=== PATIENT | male | born 1935 | race Caucasian/White ===

== ENCOUNTER 2019-01-17 13:09 | Day surgery (SDC) | payer MEDICARE ==
[~2019-01-17] VITALS: Ht 180.3 cm; Wt 143.9 kg
[~2019-01-17 13:09] MED LIST: ALBU90OI INH; AMLO10 PO; ASPI81CH PO; AZIT250 PO; Aldactone25 MG PO; Aspir 8181 MG PO; Bumetanide2 MG PO; CARV6.25 PO; CHOL10002 PO; COCONUT OIL1000 MG PO; Carvedilol12.5 MG PO; Cinnamon500 MG PO; ESOM20 PO; FURO40 PO; Ferrous Sulfat325 M2 PO; Flovent 110 MCG12 GM INH; GLIP10 PO; GLIP5ER PO; INSUL100I SC; LACT10SY PO; LINZESS290 MCG PO; LOSA50 PO; LOSARTAN POTAS100 MG PO; MAGOXI400 PO; METF500C PO; Metformin HCl1000 MG PO; POTCHL20ER PO; PRAV20 PO; PREG100 PO; SPACE CHAMBER1 EACH MC; SPIR50 PO; TOUJEO SOL300 UNIT/1 SC; TRAZ50 PO; Vitamin B-12100 MCG PO; Zyloprim100 MG PO
--- NOTE | 2019-01-17 19:04 | NUR ---
01/17/191903 Ute Morales (Gia DELAYED ENTRY PT ATE FULL BREAKFAST AT 1130. DR. RAMOS & DR. JARRETT NOTIFIED. DR. RAMOS OKAY TO PROCEDURE WITH SURGERY WITHOUT ANESTHESIA, USING ONLY LOCAL. PT STATES UNDERSTANDING & AGREES WITH PLAN. DR. JARRETT EXCUSED FROM CASE.
== END 2019-01-17 15:33 | disposition home or self-care (01) ==
LOC: ORSCSDS 13:09
PROVIDERS: Ophthalmology
PROC: 08BN0ZZ Excision of Right Upper Eyelid, Open Approach (ICD-10-PCS; principal; 2019-01-17 14:45)
PROC: 080NXZZ Alteration of Right Upper Eyelid, External Approach (ICD-10-PCS; principal; 2019-01-17 14:45)
PROC: 080PXZZ Alteration of Left Upper Eyelid, External Approach (ICD-10-PCS; principal; 2019-01-17 14:45)
PROC: 08BP0ZZ Excision of Left Upper Eyelid, Open Approach (ICD-10-PCS; principal; 2019-01-17 14:45)
DX: H02.831 Dermatochalasis of right upper eyelid (principal); H02.834 Dermatochalasis of left upper eyelid; H02.423 Myogenic ptosis of bilateral eyelids; E66.01 Morbid (severe) obesity due to excess calories; Z68.41 Body mass index [BMI] 40.0-44.9, adult; I12.9 Hypertensive chronic kidney disease with stage 1 through stage 4 chronic kidney disease, or unspecified chronic kidney disease; E11.59 Type 2 diabetes mellitus with other circulatory complications; E11.42 Type 2 diabetes mellitus with diabetic polyneuropathy; E11.22 Type 2 diabetes mellitus with diabetic chronic kidney disease; N18.3 Chronic kidney disease, stage 3 (moderate); E78.5 Hyperlipidemia, unspecified; Z79.84 Long term (current) use of oral hypoglycemic drugs; Z79.899 Other long term (current) drug therapy; Z79.82 Long term (current) use of aspirin
CPT/HCPCS: 82947; J0171; J7120

== ENCOUNTER 2023-04-07 08:06 | Emergency (ER) | payer MEDICARE ==
[~2023-04-07] VITALS: Ht 172.7 cm; Wt 142.9 kg
[2023-04-07 08:49] LABS: BASOPHILS ABSOLUTE AUTO 0.04 K/mm3 (0.00-0.23); BASOPHILS PERCENT AUTO 1 % (0-2); EOSINOPHILS PERCENT AUTO 3 % (0-6); Hematocrit 35.9 % (37.0-53.0); Hemoglobin 11.8 g/dL (13.5-17.5); IMMATURE GRAN ABSOLUTE AUTO 0.03 K/mm3 (0.00-0.10); IMMATURE GRAN PERCENT AUTO 0 % (0-1); LYMPHOCYTES ABSOLUTE AUTO 1.72 K/mm3 (0.84-5.20); LYMPHOCYTES PERCENT AUTO 22 % (21-46); MONOCYTES ABSOLUTE AUTO 0.53 K/mm3 (0.16-1.47); MONOCYTES PERCENT AUTO 7 % (4-13); Mean Corpuscular HGB 29.1 pg (26.0-34.0); Mean Corpuscular HGB Conc 32.9 g/dL (31.5-36.5); Mean Corpuscular Volume 89 fL (80-100); Mean Platelet Volume 9.8 fL (9.1-12.4); NEUTROPHILS ABSOLUTE AUTO 5.38 K/mm3 (1.96-9.15); NEUTROPHILS PERCENT AUTO 68 % (41-73); Platelet Count 250 K/mm3 (150-400); RDW Coefficient Variation 13.5 % (11.7-14.2); RDW Standard Deviation 44.3 fL (35.1-46.3); Red Blood Cell Count 4.05 M/mm3 (4.30-5.90)
[2023-04-07 09:29] LABS: Albumin, Blood 3.4 g/dL (3.4-5.0); Albumin/Globulin Ratio 0.9 (0.8-1.8); Bilirubin, Total 0.4 mg/dL (0.1-1.0); Bun/Creatinine Ratio 14.3 (12.0-20.0); Creatinine, Blood 1.75 mg/dL (0.60-1.20); Globulin, Blood 3.6 g/dL (2.2-4.0); Magnesium, Blood 2.1 mg/dL (1.6-2.4); Potassium, Blood 3.5 mmol/L (3.5-5.5)
[2023-04-07 10:05] LABS: Source, Urine Clean Catch
[2023-04-07 10:08] LABS: Appearance, Urine Clear (Clear); Bilirubin, Urine Neg (Neg); Blood, Urine 1+ (Neg); Color, Urine Yellow (P-Yellow); Glucose Qualitative, Urine Neg (Neg); Ketones, Urine Neg (Neg); Leukocyte Esterase, Urine Neg (Neg); Nitrite, Urine Neg (Neg); Protein, Urine 1+ (Neg); Urobilinogen, Urine NORM (Normal); pH, Urine 6.5 (5.0-8.0)
[2023-04-07 10:17] LABS: Bacteria Rare /hpf; Squamous Epithelial Cells Rare /hpf (Few)
[2023-04-07 15:06] VITALS: BP 161/87
== END 2023-04-07 15:19 | disposition home or self-care (01) ==
LOC: ER 08:06
PROVIDERS: Physician Assistant
DX: R53.1 Weakness (principal); E11.9 Type 2 diabetes mellitus without complications; I10 Essential (primary) hypertension; E78.5 Hyperlipidemia, unspecified; E66.9 Obesity, unspecified; Z68.42 Body mass index [BMI] 45.0-49.9, adult; Z79.4 Long term (current) use of insulin; Z79.82 Long term (current) use of aspirin; Z79.899 Other long term (current) drug therapy; Z79.84 Long term (current) use of oral hypoglycemic drugs
CPT/HCPCS: 80053; 81001; 83735; 85025; 93005; 93010; 96360; 99285-25; J7030

== ENCOUNTER → 2024-08-28 | Outpatient (CLI) | payer MEDICARE ==
[2024-08-28 15:23] LABS: Bun/Creatinine Ratio 13.2 (12.0-20.0); Calcium, Blood 9.5 mg/dL (8.5-10.1); Creatinine, Blood 1.67 mg/dL (0.60-1.20); Potassium, Blood 4.1 mmol/L (3.5-5.5)
== END | disposition home or self-care (01) ==
LOC: LAB SHORT 13:15 → LAB 13:15
PROVIDERS: Internal Medicine
DX: E11.9 Type 2 diabetes mellitus without complications (principal)
CPT/HCPCS: 80048

== ENCOUNTER 2025-01-05 08:07 | Observation (INO) | payer MEDICARE ==
[~2025-01-05] VITALS: Ht 188 cm; Wt 137.0 kg
[2025-01-05 08:34] LABS: Calcium, Ionized (POC) 1.24 mmol/L (1.10-1.46); Chloride (POC) 103 mmol/L (98-108); Creatinine (POC) 1.9 mg/dL (0.8-1.3); Glucose (ISTAT POC) 98 mg/dL (70-99); Hematocrit (POC) 34.0 % (41.0-53.0); Hemoglobin (POC) 11.6 g/dL (13.5-17.5); Potassium (POC) 3.5 mmol/L (3.5-5.5); Sodium (POC) 142 mmol/L (135-148); Total CO2 (POC) 25 mmol/L (21-32)
[2025-01-05 08:37] LABS: BASOPHILS ABSOLUTE AUTO 0.05 K/mm3 (0.00-0.23); BASOPHILS PERCENT AUTO 1 % (0-2); EOSINOPHILS ABSOLUTE AUTO 0.30 K/mm3 (0.00-0.68); EOSINOPHILS PERCENT AUTO 5 % (0-6); Hematocrit 34.3 % (37.0-53.0); Hemoglobin 11.2 g/dL (13.5-17.5); IMMATURE GRAN ABSOLUTE AUTO 0.01 K/mm3 (0.00-0.10); IMMATURE GRAN PERCENT AUTO 0 % (0-1); LYMPHOCYTES ABSOLUTE AUTO 2.01 K/mm3 (0.84-5.20); LYMPHOCYTES PERCENT AUTO 32 % (21-46); MONOCYTES ABSOLUTE AUTO 0.51 K/mm3 (0.16-1.47); MONOCYTES PERCENT AUTO 8 % (4-13); Mean Corpuscular HGB Conc 32.7 g/dL (31.5-36.5); Mean Corpuscular Volume 90 fL (80-100); NEUTROPHILS ABSOLUTE AUTO 3.41 K/mm3 (1.96-9.15); NEUTROPHILS PERCENT AUTO 54 % (41-73); NRBC ABSOLUTE 0.00 K/mm3 (0.00-0.02); NRBC Auto 0.0 /100 WBC (0.0-0.2); Platelet Count 259 K/mm3 (150-400); RDW Coefficient Variation 14.2 % (11.7-14.2); RDW Standard Deviation 46.0 fL (35.1-46.3)
[2025-01-05 09:03] LABS: Alanine Aminotransfer (ALT/SGP 19 U/L (12-78); Albumin, Blood 3.4 g/dL (3.4-5.0); Albumin/Globulin Ratio 1.0 (0.8-1.8); Anion Gap 11 mmol/L (3-11); Aspartate Aminotrans (AST/SGOT 16 U/L (12-37); Bilirubin, Total 0.5 mg/dL (0.1-1.0); Blood Urea Nitrogen 29 mg/dL (8-24); CO2, Blood 26 mmol/L (21-32); Calcium, Blood 9.5 mg/dL (8.5-10.1); Chloride, Blood 107 mmol/L (98-108); Creatinine, Blood 1.75 mg/dL (0.60-1.20); Globulin, Blood 3.3 g/dL (2.2-4.0); Glucose, Blood 99 mg/dL (70-99); Potassium, Blood 3.5 mmol/L (3.5-5.5); Sodium, Blood 140 mmol/L (136-145); Total Protein, Blood 6.7 g/dL (6.4-8.2)
[2025-01-05] MEDS ORDERED: Morphine Sulfate 4 MG/1 ML Injection IV ONE (09:35)
[2025-01-05] MEDS ORDERED: Ondansetron HCl 2 MG / ML 2ML Vial IV ONE (09:35)
[2025-01-05] MEDS ORDERED: Diazepam 5 MG / ML 2ML SYR IV PRN (10:50)
[2025-01-05] MEDS ORDERED: Morphine Sulfate 20 MG/1ML 1 ML Oral Syringe SL PRN (10:55)
[2025-01-05] MEDS ORDERED: Ondansetron HCl 2 MG / ML 2ML Vial IV PRN (10:55)
[2025-01-05] MEDS ORDERED: Atropine Sulfate 1% Opth Soln 2ML BTL SL PRN (10:55)
[2025-01-05 11:30] VITALS: BP 165/80
[2025-01-05] MEDS ORDERED: HydrALAZINE HCl 20 MG / ML 1ML Vial IV PRN (15:30)
--- NOTE | 2025-01-05 17:35 | NUR ---
DISCUSSED CASE WIHT PROVIDER AND BSRN. ARRIVED TO THE ROOM TO ASSESS PATIENT. HE WAS RESTING AND APPEARED COMFORTABLE UPON MY ARRIVAL. ALS HEALTH INSURANCE SPECIALIST AT BEDSIDE TO ASSIST IN COMMUNICATING WITH PATIENTS . RELAYED PATIENT CURRENT CONDITION AND PLAN OF CARE TO PATIENTS SPOUSE. 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 SHE WAS TEARFUL AND EXPRESSED UNDERSTANDING AND AGREEMENT WITH THIS PLAN OF CARE.
--- NOTE | 2025-01-05 20:07 | NUR ---
SHIFT SUMMARY PT UNRESPONSIVE INTERMITTENT. WILL WAKE TO VERBAL. PT HAS L SIDE WEAKNESS. PT ARRIVED TO FLOOR AT 1423. PT TRANSFERED TO BED IN ROOM VIA SLIDER SHEET AND ASSISTANCE. PT ARIVED TO FLOOR ON 4L OF O2 VIA N/C. PT TAKES OFF O2 AT TIMES. PT MEDICATED FOR PAIN/AIRHUNGER/AGITATION PRN. SUCTION SET UP AT BEDSIDE. AT BEDSIDE TODAY. IS DEAF. THIS RN NOTED THAT MAY NOT UNDERSTAND FULLY WHAT IS OCCURING WITH . NOZZLE AND SLEEVE WORKER CAME, PALLIATIVE CARE TALKED W ABOUT COMFORT CARE MEASURES. REPORTED "ITS IN GODS HANDS, HE DOESN'T WANT ANYONE TO PLAY GOD." PT IS DNR, REMAINS ON COMFORT CARE. THIS RN ATTEMPTED TO GET ORDERS UPDATED SUCH SCOLPOLIMINE PATCH ADDED FOR SECRETIONS NOTED AND ROXANOL INCREASED. THIS RN LEFT VOICEMAIL FOR DR. GALLEGOS, AWAITING ORDERS. NOTIFIED NIGHT RN. PT NOT AWAKE ENOUGH TO EAT. PT IN BED, BED IN LOWEST POSITION, CALL LIGHT IN REACH.
[2025-01-06] MEDS ORDERED: NS 250 ML IV PRN (06:00)
--- NOTE | 2025-01-06 06:00 | NUR ---
SHIFT SUMMARY PT SOMEWHAT RESPONSIVE AT START OF SHIFT WITH SOME GARBLED SPEACH, HOWEVER PT BECAME LESS RESPONSE T/O NIGHT. MEDICATED FOR PAIN USING THE FLACC SCALE. PT REMAINS ON 4L OF OXYGEN. ORAL CARE PROVIED PRN. SCOPOLAMINE PATCH PLACED BEHIND RIGHT EAR FOR SECREATIONS. RT AT BEDSIDE FOR DEEP SUCTION. REPOSITIONED T/O NIGHT. BED IN LOWEST POSITION AND CALL LIGHT IN REACH.
--- NOTE | 2025-01-06 10:53 | NUR ---
NOTE PT HAVING A LOT OF SECRETIONS, RESPIRATORY THERAPY DEEP SUCTIONED PT. SCOPOLAMINE PATCH IN PLACE. PT ON 5L OF O2 VIA N/C. EL ROUNDED ON PT. EL SAID "NO NEED TO DO VITALS SINCE PT SHOWS SIGNS OF DECLINE AND ON COMFORT CARE", PT USES ACCESSORY MUSCLE USE. REPORTED TO DR. GALLEGOS, DR. GALLEGOS REPORTED KEEP ROXANOL ORDER SAME. "NO NEED TO INCREASE." PT ON COMFORT CARE. PT FLAILS R ARM TAKES OFF O2 AT TIMES. PT MEDICATED W ATIVAN FOR AGITATION AND ROXANOL FOR AIR HUNGER. PT IN BED, BED IN LOWEST POSITION, CALL LIGHT IN REACH.
[2025-01-06] MEDS ORDERED: Morphine Sulfate 20 MG/1ML 1 ML Oral Syringe SL PRN (13:00)
[2025-01-06] MEDS ORDERED: Glycopyrrolate 0.2 MG/ML 1MLVIAL IV PRN (13:15)
--- NOTE | 2025-01-06 16:17 | NUR ---
ASSESSED PATIENT THIS AM. HE WAS RESTING. LUNG SOUNDS ARE WET. DISCUSSED CASE WITH PROVIDER, INCREASED PAIN MEDICATION. FAMILY WILL BE IN LATER. PROVIDER ANTICIPATED PATIENT WILL PASS WITHIN THE NEXT FEW DAYS, I AGREE WITH THIS ASSESSMENT.
--- NOTE | 2025-01-06 19:19 | NUR ---
SHIFT SUMMARY PT UNRESPONSIVE. PT ADMITTED DUE TO R SIDED NONTRAUMATIC INTRACEREBRAL HEM. PT ON 5L OF O2 FOR COMFORT. PT TURNED Q2. PT MEDICATED FOR PAIN/AIRHUNGER. PREFORMED ORAL CARE NEEDED. SUCTION AT BEDSIDE. SUCTIONED SECRETIONS PRN. SCOLPOLMINE PATCH BEHIND R EAR. RT DEEP SUCTIONED PT X2 TODAY FOR COMFORT. IV ROBINUL GIVEN, DECRESSED EXESSIVE SECRETIONS. PT USES ACCESSORY MUSCLE WHEN BREATHING, ROXANOL GIVEN. PT NOT AWAKE TO EAT. NO AGITATION NOTED SINCE THIS AM. PT HAS ATTENDS ON, PT NOT PRODUCING URINE. PT IN BED. BED IN LOWEST POSITION, CALL LIGHT IN REACH. IS DEAF AND AT BEDSIDE, REPORTS WANT TO SPEND THE NIGHT, REPORTED TO NIGHT RN. COPY OF HOME CARD IN CHART.
[2025-01-06] MEDS ORDERED: NS IV SCH (21:00)
[2025-01-06] MEDS ORDERED: LEVETIRACETAM IV SCH (21:00)
--- NOTE | 2025-01-07 04:59 | NUR ---
SHIFT SUMMARY PATIENT UNRESPONSIVE. SECRETION IS INCREASING. NASALTRACHEAL SUCTION PERFORMED BY RT TWICE THIS SHIFT. REPOSITIONED PATIENT THROUGHOUT THE NIGHT. BED LOCKED AND IN LOWEST POSITION. CALL LIGHT WITHIN REACH, IS AT BESIDE.
--- NOTE | 2025-01-07 10:29 | NUR ---
SON TALKED WITH PT SON, H[place] LOCATED IN [place]. HE IS UNABLE TO LEAVE HIS EMPLOYMENT UNTIL DAD PASSES. PHONE # .
--- NOTE | 2025-01-07 11:57 | NUR ---
COMFORT CARE PT RESTLESS. USING RIGHT ARM TO PICK AT MOLES/SCABS. COPIOUS AMOUNTS OF ORAL SECREATIONS. ORALLY SUCTIONED FREQUENTLY. DARK/BROWN THICK SECRETIONS REMOVED. ORAL CARE DONE. PT UPPER PARTIAL REMOVED. ORAL ODOR BETTER AFTER PARTIAL REMOVED. ROXANOL GIVEN. ATIVAN GIVEN. PT SPOUCE WENT HOME. REPOSTIONED WITH 3 ASSIST FOR SKIN PROTECTION AND PT COMFORT. INCONTINET OF URINE X2. BED BATH DONE. PT SKIN SLUFFING WITH MOLES FALLING OFF. CAREONGOING.
[2025-01-07] MEDS ORDERED: DiphenhydrAMINE HCl 50 MG/ML 1ML Vial IV PRN (12:05)
[2025-01-07] MEDS ORDERED: Morphine Sulfate 20 MG/1ML 1 ML Oral Syringe PO PRN (13:00)
--- NOTE | 2025-01-07 17:14 | NUR ---
NOTE PT RESTING QUIETLY. RESP LESS LABORED. ORAL CARE DONE. ORAL CAVITY VERY DRY. SECRETIONS HAVE DECREASED WITH SUCTIONING AND MEDICATIONS. HAVE NOT NEEDED TO SUCTION FOR SEVERAL HOURS. MEDICATED WITH ROXANOL AND ATIVAN FRO COMFORT. SCOPLAMINE AND ATROPINE FOR SECRETIONS. PT WILL USE HIS RIGHT ARM TO SCRATCH HIS NOSE. 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 TALKED WITH PT SON ON THE PHONE. CARE ONGOING.
--- NOTE | 2025-01-08 01:32 | NUR ---
COMFORT CARE PT TOD 0126 TWO RN VERIFICATION AT BEDSIDE PROVIDER NOTIFIED.
--- NOTE | 2025-01-08 01:38 | NUR ---
ATTMEPTED TO NOTIFY CONTACT BREN LEFT MESSAGE TO RETURN CALL
--- NOTE | 2025-01-08 02:22 | NUR ---
CALL TO [facility] SPOKE TO ILIA NGUYEN. NOTIFIED OF PT'S PASSING. ATTEMPTED NOTIFICATION TO FAMILY BUT UNABLE TO REACH. ADVISED PT CAN BE PICKED UP AND TAKEN TO HOME. WILL BE HERE FOR PT IN 1 HOUR.
--- NOTE | 2025-01-08 02:52 | NUR ---
NURSE NOTE PATIENTS SON CALLED BACK AND WAS GIVEN UPDATE OF PATIENTS PASSING.
--- NOTE | 2025-01-08 03:30 | NUR ---
NURSE NOTE ILIA FROM [facility] PICKED UP PATIENT.
== END 2025-01-08 01:26 ==
LOC: ER 08:07 → MEDS 08:08
PROVIDERS: Emergency Medicine; ADMIT Internal Medicine
DX: I61.8 Other nontraumatic intracerebral hemorrhage (principal); G40.919 Epilepsy, unspecified, intractable, without status epilepticus; I12.9 Hypertensive chronic kidney disease with stage 1 through stage 4 chronic kidney disease, or unspecified chronic kidney disease; E11.22 Type 2 diabetes mellitus with diabetic chronic kidney disease; N18.30 Chronic kidney disease, stage 3 unspecified; E78.5 Hyperlipidemia, unspecified; E66.9 Obesity, unspecified; Z68.37 Body mass index [BMI] 37.0-37.9, adult; Z66 Do not resuscitate; Z79.4 Long term (current) use of insulin; Z79.82 Long term (current) use of aspirin; Z79.899 Other long term (current) drug therapy
CPT/HCPCS: 31720; 70450; 80047; 80053; 84484; 85014; 85025; 93005; 93010; 96365; 96366; 96375; 96376; 99285-25; A9270; G0378; J1953; J2270; J2405; J7050